=== PATIENT | male | born 1985 | race Caucasian/White ===

== ENCOUNTER 2022-08-18 09:37 | Emergency (ER) | payer OTHER, SELFPAY ==
[2022-08-18] MEDS ORDERED: Boostrix 0.5 ML (Tdap) VIAL (>/=7 yrs of age) ONE (10:02)
[2022-08-18] MEDS ORDERED: Lidocaine 1% (PF) 30 ML VIAL ONE (10:03)
== END 2022-08-18 10:40 | disposition home or self-care (01) ==
LOC: NAV ERS 09:37
DX: S81.811A Laceration without foreign body, right lower leg, initial encounter (principal); E03.9 Hypothyroidism, unspecified; W45.8XXA Other foreign body or object entering through skin, initial encounter
CPT/HCPCS: 12001; 90471; 90715; J2001